=== PATIENT | male | born 1960 ===

== ENCOUNTER → 2017-01-29 | Outpatient (REF) ==
--- NOTE | 2017-01-29 11:09 | REP ---
PARTIAL LUMBAR SPINE, THREE VIEWS: HISTORY: Degenerative disc disease. There is no acute fracture or subluxation. The intervertebral discs are decreased in height consistent with disc degeneration. Osteophytes are present throughout the lumbar spine. IMPRESSION: Degenerative change as described above. Signed by Issac Brunson MD 01/29/2017 11:47 A
== END ==
LOC: M SMT 09:58
PROVIDERS: ATTEND Internal Medicine
DX: Z02.1 Encounter for pre-employment examination (principal)